=== PATIENT | male | born 1995 | race Caucasian/White ===

== ENCOUNTER 2022-05-07 19:55 | Emergency (ER) | payer OTHER, SELFPAY ==
[2022-05-07 20:05] VITALS: BP 160/107; PULSE 98; RESP 18; TEMP 36.4; O2SAT 98; BMI 40.9
--- NOTE | 2022-05-07 20:33 | DI.US.S_ITS ---
PROCEDURE: US SCROTUM INDICATIONS: RIGHT TESTICLE PAIN TECHNIQUE: Real-time scanning was performed of the scrotum and testicles, with image documentation. Color and pulse Doppler interrogation was performed of both testicles. COMPARISON: None. FINDINGS: Right: Testicle is normal in size at 3.3 x 2.6 x 4.7 cm, and homogenous in echotexture. Epididymis is normal in overall size and morphology except for presence of multiple edit but did a mole head cysts. No increased vascularity is associated.. No hydrocele or varicoceles. Overlying scrotal skin is normal in thickness. Left: Testicle is normal in size at 3.0 x 2.2 x 5.0 cm, and homogeneous in echotexture. Epididymis is normal in overall size and morphology except for presence of multiple epididymal head cysts without elevated vascularity.. No hydrocele or varicoceles. Overlying scrotal skin is normal in thickness. Doppler: Color and pulse Doppler demonstrate normal and symmetric arterial flow in both testicles. IMPRESSION: Bilateral multiple epididymal cysts, without associated increased vascularity. There is no sign of testicular torsion or underlying mass. Dictated by: Jevon Rachel M.D. on 05/07/2022 at 21:52 Approved by: Jevon Rachel M.D. on 05/07/2022 at 21:54
--- NOTE | 2022-05-07 21:00 | ED_ITS ---
HPI - Male Genitourinary General Chief complaint: Urogenital-Male Stated complaint: testicular pain x1 hour Time Seen by Provider: 05/07/22 20:46 Source: patient Mode of arrival: Ambulatory History of Present Illness HPI Narrative: 18-year-old male nonsmoker with noncontributory medical history presents with a chief complaint of right-sided testicular pain for the past hour. He states that he has had no injury or trauma. He denies any specific motion or action that led to the pain and states it seems to started out of nowhere. He admits that the pain seemed to be worse when he moved or when he touched his scrotum and improves with rest. He denies any abdominal or flank pain. He is had no dysuria, frequency or urgency. He denies any fever, chills nor nausea or vomiting Related Data Allergies Allergy/AdvReac Type Severity Reaction Status Date / Time hydrocodone Allergy Rash Verified 05/07/22 20:05 Review of Systems Review of Systems Narrative: GENERAL: Denies chills, fatigue, malaise, fever, sweats. HEENT: Denies sinus pain, ear pain, sore throat, difficulty swallowing, dizziness. RESPIRATORY: Denies dyspnea, cough, wheezing, hemoptysis, sputum. CARDIOVASCULAR: Denies chest pain, palpitations, orthopnea, edema, GASTROINTESTINAL: Denies nausea, vomiting, abdominal pain, diarrhea, constipation, melena. : See HPI MUSCULOSKELETAL: denies weakness, joint pain, or bony pain SKIN: Denies rash, skin lesions, or other NEUROLOGIC: Denies weakness, headache, numbness, change in speech, confusion, seizures, incoordination. PSYCHIATRIC: No concerning psychosocial issues. 12 point review of systems is negative except for those stated above Patient History Social History Smoking Status: Never smoker Smoking Status: Never smoker Substance Use Type: does not use Exam Narrative Exam Narrative: GENERAL: [26] year old patient appears stated age. Well-developed patient, in mild distress. HEAD: Atraumatic. Normocephalic. EYES: Pupils equal round and reactive. Extraocular motions intact. No scleral icterus. No injection or drainage. ENT: Nose without bleeding, purulent drainage. Throat without erythema, tonsillar hypertrophy or exudate. Airway patent. NECK: Trachea midline. Non tender CARDIOVASCULAR: Regular rate and rhythm without murmurs, gallops, or rubs. RESPIRATORY: Clear to auscultation. Breath sounds equal bilaterally. No wheezes, rales, or rhonchi. GASTROINTESTINAL: Abdomen soft, non-tender, nondistended. : No testicular pain, swelling or discoloration, no pain on exam, no palpable inguinal hernia. Patient examined in standing position with patient's permission EXTREMITIES: No edema or joint tenderness. BACK: Nontender without deformity or crepitance. No flank tenderness. NEURO: AOx3. SKIN: No rash or erythema of visible areas Initial Vital Signs Initial Vital Signs: Vital Signs Temperature 97.6 F 05/07/22 20:05 Pulse Rate 98 H 05/07/22 20:05 Respiratory Rate 18 05/07/22 20:05 Blood Pressure 160/107 H 05/07/22 20:05 Pulse Oximetry 98 05/07/22 20:05 Oxygen Delivery Method Room Air 05/07/22 20:05 Course Orders Ordered: ED Orders 05/07/22 20:33 US scrotum Stat Vital Signs Vital signs: Vital Signs - 8 hr 05/07/22 20:05 Temperature 97.6 F Pulse Rate 98 H Respiratory Rate 18 Blood Pressure 160/107 H Pulse Oximetry 98 Oxygen Delivery Method Room Air MDM - Male Genitourinary Lab Data Labs: Urine Dip Bedside Urine Glucose Negative Bedside Urine Bilirubin - Negative Bedside Urine Ketone - Negative Urine Specific [place] 1.020 Bedside Urine Occult Blood - Negative Bedside Urine pH 6.0 Bedside Urine Protein - Negative Bedside Urine Urobilinogen - Negative Bedside Urine Nitrite - Negative Bedside Urine Leukocytes - Negative Esterase MDM Narrative Medical decision making narrative: [26] year old patient presents with testicular pain for 1 hour, nearly completely resolved by arrival Multiple etiologies for patient's symptoms considered including, but not limited to: [Torsion verse hernia versus epididymitis versus other] No prior charts available Primary Historian: patient Labs reviewed and interpreted by myself: Imaging reviewed: No evidence of torsion Patient presents with testicular pain that had largely resolved prior to his arrival in the absence of injury. Ultrasound demonstrates no significant findings such as torsion, epididymitis or other. Urine is clean and absence of signs of infection or blood. No evidence of hernia on exam or imaging. Findings and discharge diagnosis discussed with patient/family followed by verbalization of understanding Return precautions discussed with patient/family whom verbalize understanding of diagnosis and plan Discharge Plan Departure Patient Disposition: Home Clinical Impression: Testicle tenderness Instructions: DI for Testicular Pain Activity Restrictions/Additional Instructions: *You have been diagnosed with [right testicular pain. As we discussed your history and physical exam are very reassuring and there is no evidence infection in the urine or abnormal finding on the ultrasound] *What to do: *Please continue to take your regular medications as directed. *Please follow up with your primary care provider in 2-3 days, call for an appointment. Let them know you were seen in the Emergency Department and that we ask that you be seen in follow up. We will electronically transmit a record of today's note if your PCP is in our system * as we discussed, I have included contact information for local urology. For ongoing symptoms please contact the number listed below, let them know you had been seen in the emergency department and we would like you seen in follow-up. I will electronically transmitted a copy of today's note *Return to Emergency Department if you should have any new, worsening or concerning symptoms, such as [fever greater than 101 F, shaking chills, worsening pain, persistent vomiting or other bothersome symptoms] Referrals: Carl Lopez MD [Physician] - Stand Alone Forms: Patient Portal/API
[2022-05-07 23:00] VITALS: BP 144/94; PULSE 98; RESP 18; O2SAT 96
== END 2022-05-07 23:00 | disposition home or self-care (01) ==
PROVIDERS: Emergency Provider Emergency Medicine
DX: N50.811 Right testicular pain (principal)
CPT/HCPCS: 76870; 81003; 93975; 99281; 99283